=== PATIENT | female | born 1950 | race Caucasian/White ===

== ENCOUNTER 2017-07-05 07:39 | Outpatient (CLI) | payer MEDICARE, MEDICAID ==
[~2017-07-05] VITALS: Ht 160 cm; Wt 94.3 kg
[~2017-07-05 07:39] MED LIST: AMLO5TAB2 PO; ARTH650T11 PO; ATOR1TAB21 PO; CALC600T57 PO; ESTR62TA PO; GABA-279 PO; LOSARTAN/HCT PO; OMEP40CA2 PO; TRIA1CR TOP; VITA400C7 PO
[2017-07-05] MEDS ORDERED: NS 1,000 ML IV ONE (07:45)
[2017-07-05] MEDS ORDERED: LIDOCAINE 2% INJ 100 MG/5 ML SDV (FOR ANES.) As Ordered ONE (09:31)
[2017-07-05] MEDS ORDERED: PROPOFOL 200 MG/20 ML VIAL As Ordered ONE (09:31)
--- NOTE | 2017-07-05 09:47 | ROOR ---
Patient Name: Flor Damon Procedure Date: 07/05/2017 9:08 AM Date of : 1950 Age: 66 Room: [facility] Gender: Female Note Status: Finalized Procedure: Colonoscopy Indications: Screening for colorectal malignant neoplasm Providers: Jaycob Mendoza Jr, MD Referring MD: TOM VAZQUEZ Requesting Provider: Medicines: Propofol per Anesthesia Complications: No immediate complications. Procedure: Pre-Anesthesia Assessment: - Prior to the procedure, a History and Physical was performed, and patient medications and allergies were reviewed. The patient is competent. The risks and benefits of the procedure and the sedation options and risks were discussed with the patient. All questions were answered and informed consent was obtained. Patient identification and proposed procedure were verified by the physician and the nurse in the pre-procedure area and in the procedure room. Mental Status Examination: alert and oriented. Airway Examination: normal oropharyngeal airway and neck mobility. Respiratory Examination: clear to auscultation. CV Examination: normal. ASA Grade Assessment: II - A patient with mild systemic disease. After reviewing the risks and benefits, the patient was deemed in satisfactory condition to undergo the procedure. The anesthesia plan was to use moderate sedation / analgesia (conscious sedation). Immediately prior to administration of medications, the patient was re-assessed for adequacy to receive sedatives. The heart rate, respiratory rate, oxygen saturations, blood pressure, adequacy of pulmonary ventilation, and response to care were monitored throughout the procedure. The physical status of the patient was re-assessed after the procedure. The Colonoscope was introduced through the anus and advanced to the cecum, identified by appendiceal orifice and ileocecal valve. The colonoscopy was performed without difficulty. The patient tolerated the procedure well. The quality of the bowel preparation was adequate and good. Findings: The rectum, descending colon, transverse colon, ascending colon, cecum, appendiceal orifice, ileocecal valve and ileum appeared normal. Multiple small and large-mouthed diverticula were found in the sigmoid colon. A medium polyp was found in the distal sigmoid colon. The polyp was pedunculated. The polyp was removed with a hot snare. Resection and retrieval were complete. Impression: - The rectum, descending colon, transverse colon, ascending colon, cecum, appendiceal orifice, ileocecal valve and terminal ileum are normal. - Diverticulosis in the sigmoid colon. - One medium polyp in the distal sigmoid colon, removed with a hot snare. Resected and retrieved. Recommendation: - Discharge patient to home (ambulatory). - Repeat colonoscopy in 3 years for surveillance. Jaycob Mendoza MD Jaycob Mendoza Jr, MD 07/05/2017 9:47:13 AM This report has been signed electronically. Number of Addenda: 0 Note Initiated On: 07/05/2017 9:08 AM Estimated Blood Loss: Estimated blood loss: none.
[2017-07-05 10:05] VITALS: BP 144/68
== END 2017-07-05 10:19 | disposition home or self-care (01) ==
LOC: M OPP 07:39
PROVIDERS: ATTEND Surgery
DX: Z12.11 Encounter for screening for malignant neoplasm of colon (principal); D12.5 Benign neoplasm of sigmoid colon; K57.30 Diverticulosis of large intestine without perforation or abscess without bleeding; I10 Essential (primary) hypertension; E78.00 Pure hypercholesterolemia, unspecified; R51 Headache; M19.90 Unspecified osteoarthritis, unspecified site; K21.9 Gastro-esophageal reflux disease without esophagitis; Z88.6 Allergy status to analgesic agent; Z79.899 Other long term (current) drug therapy

== ENCOUNTER → 2019-03-03 | Outpatient (CLI) | payer MEDICARE, MEDICAID ==
[~2019-03-03] MED LIST changes: -AMLO5TAB2 PO; +AMLO5TAB6 PO; +GABA-1171 PO; -GABA-279 PO; +TRIA0.1C60 TOP; -TRIA1CR TOP
[2019-03-03 10:19] LABS: BASO # 0.1 10^3/uL (0.0-0.2); BASO % 0.7 % (0.0-1.0); EOS # 0.7 10^3/uL (0.0-0.50); HEMATOCRIT 39.9 % (36.0-47.0); LYMPH # 1.8 10^3/uL (1.5-4.5); LYMPH % 25.3 % (24.0-44.0); MEAN CORPUSCULAR HGB CONC 32.6 g/dl (32.0-36.5); MEAN CORPUSCULAR VOLUME 91.9 fl (80.0-96.0); MONO # 0.5 10^3/uL (0.0-0.8); MONO % 6.5 % (0.0-5.0); NEUTROPHILS # 4.2 10^3/uL (1.8-7.7); NEUTROPHILS % 58.1 % (36.0-66.0); PLATELET COUNT, AUTOMATED 358 10^3/uL (150-450); RED BLOOD COUNT 4.34 10^6/uL (4.00-5.40); WHITE BLOOD COUNT 7.2 10^3/uL (4.0-10.0)
[2019-03-03 10:48] LABS: ALBUMIN 3.8 GM/DL (3.2-5.2); BILIRUBIN,TOTAL 0.8 MG/DL (0.2-1.0); CALCIUM LEVEL 9.7 MG/DL (8.8-10.2); CHOLESTEROL RISK RATIO 3.815 (<5); CREATININE FOR GFR 1.43 MG/DL (0.55-1.30); POTASSIUM SERUM 4.4 MEQ/L (3.5-5.1); THYROID STIMULATING HORMONE 2.1 uIU/ML (0.358-3.740); TOTAL PROTEIN 8.1 GM/DL (6.4-8.2)
== END ==
LOC: M LAB 09:44
PROVIDERS: ATTEND Physician Assistant
DX: D50.9 Iron deficiency anemia, unspecified (principal); I10 Essential (primary) hypertension; E78.5 Hyperlipidemia, unspecified

== ENCOUNTER → 2020-04-19 | Outpatient (CLI) | payer MEDICARE, MEDICAID ==
[~2020-04-19] MED LIST changes: +AMLO1TAB24 PO; -AMLO5TAB6 PO; +BIOT5TAB3 PO; +HYDR25TAB PO; +LOSA100T50 PO; -OMEP40CA2 PO; +OMEP40CA97 PO; +RA N1TAB PO
[2020-04-19 09:10] LABS: AMORPHOUS SEDIMENT SMALL (NEGATIVE); APPEARANCE, URINE HAZY (CLEAR); BACTERIA, URINE AUTO NEGATIVE (NEGATIVE); BILIRUBIN, URINE AUTO NEGATIVE (NEGATIVE); BLOOD, URINE BLOOD NEGATIVE (NEGATIVE); COLOR, URINE YELLOW (YELLOW); GLUCOSE, URINE (UA) AUTO NEGATIVE (NEGATIVE); KETONE, URINE AUTO NEGATIVE (NEGATIVE); LEUKOCYTE ESTERASE, URINE AUTO 1+ (NEGATIVE); MUCUS, URINE SMALL (NEGATIVE); NITRITE, URINE AUTO NEGATIVE (NEGATIVE); PROTEIN, URINE AUTO NEGATIVE (NEGATIVE); RBC, URINE AUTO 8 /HPF (0-3); SPECIFIC GRAVITY URINE AUTO 1.021 (1.002-1.035); SQUAMOUS EPITHELIAL CELL UR AU 9 /HPF (0-6); UROBILINOGEN, URINE AUTO 0.2 mg/dL (0.0-2.0); WBC, URINE AUTO 8 /HPF (0-3)
[2020-04-19 09:13] LABS: BASO # 0.1 10^3/uL (0.0-0.2); BASO % 1.1 % (0.0-1.0); EOS # 0.5 10^3/uL (0.0-0.5); EOS % 7.3 % (0.0-3.0); HEMATOCRIT 38.6 % (36.0-47.0); HEMOGLOBIN 12.7 g/dl (12.0-15.5); LYMPH # 1.8 10^3/uL (1.5-5.0); LYMPH % 27.8 % (24.0-44.0); MEAN CORPUSCULAR HEMOGLOBIN 29.5 pg (27.0-33.0); MEAN CORPUSCULAR HGB CONC 32.9 g/dl (32.0-36.5); MEAN CORPUSCULAR VOLUME 89.8 fl (80.0-96.0); MONO # 0.4 10^3/uL (0.0-0.8); MONO % 6.4 % (0.0-5.0); NEUTROPHILS # 3.7 10^3/uL (1.5-8.5); NEUTROPHILS % 57.1 % (36.0-66.0); PLATELET COUNT, AUTOMATED 328 10^3/uL (150-450); WHITE BLOOD COUNT 6.4 10^3/uL (4.0-10.0)
[2020-04-19 09:29] LABS: HEMOGLOBIN A1c 6.1 %
[2020-04-19 09:44] LABS: BILIRUBIN,TOTAL 0.8 MG/DL (0.2-1.0); CALCIUM LEVEL 9.3 MG/DL (8.8-10.2); CREATININE FOR GFR 1.43 MG/DL (0.55-1.30); GLOMERULAR FILTRATION RATE 38.8 (>45); POTASSIUM SERUM 3.9 MEQ/L (3.5-5.1)
[2020-04-19 09:45] LABS: ALBUMIN 3.7 GM/DL (3.2-5.2); CHOLESTEROL RISK RATIO 4.482 (<5); THYROID STIMULATING HORMONE 1.93 uIU/ML (0.358-3.740); TOTAL PROTEIN 8.2 GM/DL (6.4-8.2)
== END ==
LOC: M LAB 08:24
PROVIDERS: ATTEND Physician Assistant
DX: Z00.00 Encounter for general adult medical examination without abnormal findings (principal); D50.9 Iron deficiency anemia, unspecified; I10 Essential (primary) hypertension; E78.5 Hyperlipidemia, unspecified; R73.01 Impaired fasting glucose

== ENCOUNTER → 2020-07-10 | Outpatient (CLI) | payer MEDICARE, MEDICAID | LOC: M LABSMTC 09:27 | PROVIDERS: ATTEND Anesthesiology | DX: Z01.812 Encounter for preprocedural laboratory examination (principal); Z20.828 Contact with and (suspected) exposure to other viral communicable diseases | CPT/HCPCS: C9803; U0003 ==

== ENCOUNTER 2020-07-15 09:36 | Day surgery (SDC) | payer MEDICARE, MEDICAID ==
[~2020-07-15] VITALS: Ht 162.6 cm; Wt 95.7 kg
[~2020-07-15 09:36] MED LIST changes: +NS 1,000 ML IV ONE
[2020-07-15] MEDS ORDERED: propofoL 200 MG/20 ML VIAL As Ordered ONE ×3 (10:48→11:15)
[2020-07-15] MEDS ORDERED: SIMETHICONE 40MG/0.6ML DROPS 30ML As Ordered ONE (11:15)
--- NOTE | 2020-07-15 11:20 | ROOR ---
Patient Name: Flor Damon Procedure Date: 07/15/2020 10:45 AM Date of : 1950 Age: 69 Room: [facility] Gender: Female Note Status: Finalized Procedure: Colonoscopy Indications: High risk colon cancer surveillance: Personal history of colonic polyps Providers: Jaycob Mendoza Jr, MD Referring MD: TOM VAZQUEZ Requesting Provider: Medicines: Propofol per Anesthesia Complications: No immediate complications. Procedure: Pre-Anesthesia Assessment: - Prior to the procedure, a History and Physical was performed, and patient medications and allergies were reviewed. The patient is competent. The risks and benefits of the procedure and the sedation options and risks were discussed with the patient. All questions were answered and informed consent was obtained. Patient identification and proposed procedure were verified by the physician and the nurse in the pre-procedure area and in the procedure room. Mental Status Examination: alert and oriented. Airway Examination: normal oropharyngeal airway and neck mobility. Respiratory Examination: clear to auscultation. CV Examination: normal. ASA Grade Assessment: II - A patient with mild systemic disease. After reviewing the risks and benefits, the patient was deemed in satisfactory condition to undergo the procedure. The anesthesia plan was to use moderate sedation / analgesia (conscious sedation). Immediately prior to administration of medications, the patient was re-assessed for adequacy to receive sedatives. The heart rate, respiratory rate, oxygen saturations, blood pressure, adequacy of pulmonary ventilation, and response to care were monitored throughout the procedure. The physical status of the patient was re-assessed after the procedure. The Colonoscope was introduced through the anus and advanced to the cecum, identified by the ileocecal valve. The colonoscopy was performed without difficulty. The patient tolerated the procedure well. The quality of the bowel preparation was adequate and fair. Findings: The rectum, recto-sigmoid colon, sigmoid colon, descending colon, transverse colon, ascending colon, cecum and ileocecal valve appeared normal. Impression: - Preparation of the colon was fair. - The rectum, recto-sigmoid colon, sigmoid colon, descending colon, transverse colon, ascending colon, cecum and ileocecal valve are normal. - No specimens collected. Recommendation: - Discharge patient to home (ambulatory). - Repeat colonoscopy in 5-10 years for surveillance. Jaycob Mendoza MD Jaycob Mendoza Jr, MD 07/15/2020 11:19:48 AM Electronically signed by Jaycob Mendoza Jr, MD Number of Addenda: 0 Note Initiated On: 07/15/2020 10:45 AM Estimated Blood Loss: Estimated blood loss: none.
[2020-07-15 11:40] VITALS: BP 173/92
== END 2020-07-15 11:47 | disposition home or self-care (01) ==
LOC: M OPP 09:36
PROVIDERS: ATTEND Surgery
DX: Z12.11 Encounter for screening for malignant neoplasm of colon (principal); Z86.010 Personal history of colon polyps; I10 Essential (primary) hypertension; E78.5 Hyperlipidemia, unspecified; R12 Heartburn; M19.90 Unspecified osteoarthritis, unspecified site; Z88.6 Allergy status to analgesic agent; Z79.899 Other long term (current) drug therapy

== ENCOUNTER → 2020-07-30 | Outpatient (CLI) | payer SELFPAY ==
[~2020-07-30] MED LIST changes: -NS 1,000 ML IV ONE
== END ==
LOC: M LABSMTC 12:46
PROVIDERS: ATTEND Pediatrics
DX: Z20.828 Contact with and (suspected) exposure to other viral communicable diseases (principal)

== ENCOUNTER → 2020-08-06 | Outpatient (CLI) | payer SELFPAY | LOC: M LABSMTC 12:18 | PROVIDERS: ATTEND Pediatrics | DX: Z20.828 Contact with and (suspected) exposure to other viral communicable diseases (principal) ==

== ENCOUNTER → 2020-08-30 | Outpatient (CLI) | payer SELFPAY | LOC: M LABSMTC 13:12 | PROVIDERS: ATTEND Pediatrics | DX: Z20.828 Contact with and (suspected) exposure to other viral communicable diseases (principal) ==

== ENCOUNTER → 2020-09-08 | Outpatient (CLI) | payer SELFPAY | LOC: M LABSMTC 12:46 | PROVIDERS: ATTEND Pediatrics | DX: Z11.59 Encounter for screening for other viral diseases (principal) ==

== ENCOUNTER → 2021-02-03 | Outpatient (CLI) | payer MEDICARE, MEDICAID ==
[~2021-02-03] MED LIST changes: +HYDR-3490 PO; -HYDR25TAB PO
--- NOTE | 2021-02-04 09:57 | REPMRS ---
Patient History The patient states she had a clinical breast exam in December 2020. Patient is postmenopausal. Family history of breast cancer in maternal grandmother, breast cancer under age 50 in sister. Stereotactic core biopsy of the right breast, June 08, 2017. Excisional biopsy of the right breast, 1996. Patient states no breast complaints. Johanne has signed the MRS history sheet Digital Woman Screen Mammo: February 03, 2021 - Exam #: [id number] Bilateral CC and MLO view(s) were taken. Technologist: Lita Bliss, Technologist Prior study comparison: October 17, 2019, bilateral digital mammo screening bilat, performed at [facility]. January 09, 2018, right breast digital mammo diagnostic unilateral, performed at [place]. FINDINGS: There are scattered fibroglandular densities. Screening. Digital screening (2D) mammography was performed bilaterally in the CC and MLO projections. Additionally, breast tomosynthesis (3D mammography) was performed bilaterally in the CC and MLO projections. Todays exam was compared to the prior exams(s). By history, the patient has no complaints of a palpable breast abnormality or other significant breast complaints. The breasts are unchanged in size and shape. There are no jaspal-soft tissue densities or spiculated masses. There is no internal architectural distortion. Once again, stable benign appearing calcifications are seen.There are no suspicious jaspal-calcific clusters. Skin thickening or nipple retraction is not present. IMPRESSION: BI-RADS Category 2- Benign Findings(s). There is no evidence of malignant alteration of the breasts. Followup examination recommended in one year. The Volpara volumetric breast density category is B, there are scattered areas of fibroglandular density. This mammogram was read with the assistance of [employer],an FDA approved computer aided detection system for mammography. Negative x-ray reports should not delay surgical consultation if a dominant or clinically suspicious mass is present. The lifetime Tyrer-Cuzick score is 10.3 % Not all breast cancers can be identified by mammography. Therefore, we recommend that you continue to perform regular breast self-examination and physical examination and then promptly contact your physician of any concerns or changes. Adenosis and dense breasts may obscure an underlying neoplasm. Assessment: BI-RADS/ACR category 2 mammogram. Benign Findings. Recommendation Routine screening mammogram of both breasts in 1 year. Electronically Signed By: Allan Kapadia DO 02/04/21 [id number]
== END ==
LOC: M WHC 14:45
PROVIDERS: ATTEND Nurse Practitioner
DX: Z12.31 Encounter for screening mammogram for malignant neoplasm of breast (principal); Z78.0 Asymptomatic menopausal state; Z80.3 Family history of malignant neoplasm of breast; Z86.018 Personal history of other benign neoplasm; R92.1 Mammographic calcification found on diagnostic imaging of breast

== ENCOUNTER → 2021-11-09 | Outpatient (CLI) | payer MEDICARE, MEDICAID ==
[~2021-11-09] MED LIST changes: +LOSA100T45 PO; -LOSA100T50 PO; +OMEP40CA4 PO; -OMEP40CA97 PO
[2021-11-09 11:19] LABS: ALBUMIN 3.8 GM/DL (3.2-5.2); BILIRUBIN,TOTAL 0.7 MG/DL (0.2-1.0); CALCIUM LEVEL 9.4 MG/DL (8.8-10.2); CHOLESTEROL RISK RATIO 4.766 (<5); CREATININE FOR GFR 1.59 MG/DL (0.55-1.30); GLOMERULAR FILTRATION RATE 34.2 (>39); POTASSIUM SERUM 3.9 MEQ/L (3.5-5.1)
[2021-11-09 11:23] LABS: HEMOGLOBIN A1c 6.2 %
== END ==
LOC: M WUC 08:06
PROVIDERS: ATTEND Physician Assistant
DX: I10 Essential (primary) hypertension (principal); R73.03 Prediabetes; E78.5 Hyperlipidemia, unspecified

== ENCOUNTER → 2022-02-20 | Outpatient (REF) | payer MEDICARE, MEDICAID ==
[2022-02-20 13:18] LABS: HEMOGLOBIN A1c 6.2 %
== END ==
LOC: M LAB REF 11:48
PROVIDERS: ATTEND Physician Assistant
DX: R73.03 Prediabetes (principal)

== ENCOUNTER → 2022-06-07 | Outpatient (CLI) | payer MEDICARE, MEDICAID ==
[2022-06-07 10:18] LABS: BASO # 0.1 10^3/uL (0.0-0.2); BASO % 1.2 % (0.0-1.0); EOS # 0.5 10^3/uL (0.0-0.5); EOS % 7.3 % (0.0-3.0); HEMATOCRIT 39.1 % (36.0-47.0); HEMOGLOBIN 12.6 g/dl (12.0-15.5); LYMPH # 1.9 10^3/uL (1.5-5.0); LYMPH % 26.5 % (24.0-44.0); MEAN CORPUSCULAR HEMOGLOBIN 29.9 pg (27.0-33.0); MEAN CORPUSCULAR HGB CONC 32.2 g/dl (32.0-36.5); MEAN CORPUSCULAR VOLUME 92.9 fl (80.0-96.0); MONO # 0.5 10^3/uL (0.0-0.8); MONO % 6.7 % (2.0-8.0); NEUTROPHILS # 4.2 10^3/uL (1.5-8.5); NEUTROPHILS % 57.9 % (36.0-66.0); PLATELET COUNT, AUTOMATED 424 10^3/uL (150-450); RED BLOOD COUNT 4.21 10^6/uL (4.00-5.40); WHITE BLOOD COUNT 7.3 10^3/uL (4.0-10.0)
[2022-06-07 10:40] LABS: HEMOGLOBIN A1c 6.3 %
[2022-06-07 11:06] LABS: ALBUMIN 3.8 GM/DL (3.2-5.2); BILIRUBIN,TOTAL 0.7 MG/DL (0.2-1.0); CALCIUM LEVEL 9.3 MG/DL (8.8-10.2); CHOLESTEROL RISK RATIO 4.125 (<5); CREATININE FOR GFR 1.37 MG/DL (0.55-1.30); GLOMERULAR FILTRATION RATE 40.6 (>39); THYROID STIMULATING HORMONE 2.21 uIU/ML (0.358-3.740); TOTAL PROTEIN 7.9 GM/DL (6.4-8.2)
== END ==
LOC: M WUC 08:30
PROVIDERS: ATTEND Physician Assistant
DX: E78.5 Hyperlipidemia, unspecified (principal); I10 Essential (primary) hypertension; R73.03 Prediabetes

== ENCOUNTER → 2022-10-17 | Outpatient (CLI) | payer MEDICARE, MEDICAID ==
[2022-10-17 09:52] LABS: BASO # 0.1 10^3/uL (0.0-0.2); BASO % 0.8 % (0.0-1.0); EOS # 0.7 10^3/uL (0.0-0.5); EOS % 8.9 % (0.0-3.0); HEMATOCRIT 38.1 % (36.0-47.0); HEMOGLOBIN 12.1 g/dl (12.0-15.5); LYMPH # 1.8 10^3/uL (1.5-5.0); LYMPH % 24.3 % (24.0-44.0); MEAN CORPUSCULAR HEMOGLOBIN 29.4 pg (27.0-33.0); MEAN CORPUSCULAR HGB CONC 31.8 g/dl (32.0-36.5); MEAN CORPUSCULAR VOLUME 92.7 fl (80.0-96.0); MONO # 0.7 10^3/uL (0.0-0.8); MONO % 9.4 % (2.0-8.0); NEUTROPHILS # 4.2 10^3/uL (1.5-8.5); NEUTROPHILS % 56.1 % (36.0-66.0); PLATELET COUNT, AUTOMATED 379 10^3/uL (150-450); RED BLOOD COUNT 4.11 10^6/uL (4.00-5.40); WHITE BLOOD COUNT 7.4 10^3/uL (4.0-10.0)
[2022-10-17 10:20] LABS: ALBUMIN 3.9 G/DL (3.2-5.2); BILIRUBIN,TOTAL 0.8 MG/DL (0.3-1.2); CALCIUM LEVEL 9.1 MG/DL (8.3-10.6); CHOLESTEROL RISK RATIO 3.69 (<5); CREATININE FOR GFR 1.42 MG/DL (0.55-1.30); GLOMERULAR FILTRATION RATE 38.8 (>39); HDL CHOLESTEROL 31.1 MG/DL (>40); LDL CHOLESTEROL 46.1 MG/DL (<100); TOTAL PROTEIN 7.8 G/DL (5.7-8.2)
[2022-10-17 10:23] LABS: THYROID STIMULATING HORMONE 2.748 uIU/ML (0.55-4.78)
== END ==
LOC: M WUC 08:32
PROVIDERS: ATTEND Physician Assistant
DX: R73.03 Prediabetes (principal); I10 Essential (primary) hypertension; E78.5 Hyperlipidemia, unspecified

== ENCOUNTER 2023-02-27 17:59 | Emergency (ER) | payer MEDICARE, MEDICAID ==
[~2023-02-27] VITALS: Ht 162.6 cm; Wt 98.7 kg
[~2023-02-27 17:59] MED LIST changes: -LOSA100T45 PO; +LOSA100T46 PO
[2023-02-27 18:00] VITALS: BP 182/96
[2023-02-27] MEDS ORDERED: NORCO, ANEXSIA 5/325MG TABLET (HYDROcodone/ACETAMINOPHEN) PO ONE (23:00)
== END 2023-02-27 23:11 | disposition home or self-care (01) ==
LOC: M ED 17:59
DX: S83.91XA Sprain of unspecified site of right knee, initial encounter (principal); X50.0XXA Overexertion from strenuous movement or load, initial encounter; Y92.009 Unspecified place in unspecified non-institutional (private) residence as the place of occurrence of the external cause; Y93.01 Activity, walking, marching and hiking; Y99.8 Other external cause status; Z88.6 Allergy status to analgesic agent; Z79.899 Other long term (current) drug therapy

== ENCOUNTER → 2023-03-14 | Outpatient (CLI) | payer MEDICARE, MEDICAID ==
[2023-03-14 12:52] LABS: HEMOGLOBIN A1c 6.2 % (4.0-6.0)
== END ==
LOC: M WUC 08:40
PROVIDERS: ATTEND Physician Assistant
DX: R73.03 Prediabetes (principal)

== ENCOUNTER → 2023-10-05 | Outpatient (CLI) | payer MEDICARE, MEDICAID ==
[2023-10-05 10:45] LABS: HEMATOCRIT 39.5 % (36.0-47.0); HEMOGLOBIN 12.8 g/dl (12.0-15.5); MEAN CORPUSCULAR HEMOGLOBIN 29.6 pg (27.0-33.0); MEAN CORPUSCULAR HGB CONC 32.4 g/dl (32.0-36.5); MEAN CORPUSCULAR VOLUME 91.2 fl (80.0-96.0); PLATELET COUNT, AUTOMATED 423 10^3/uL (150-450); RED BLOOD COUNT 4.33 10^6/uL (4.00-5.40); WHITE BLOOD COUNT 8.1 10^3/uL (4.0-10.0)
[2023-10-05 11:07] LABS: HEMOGLOBIN A1c 6.1 % (4.0-6.0)
[2023-10-05 11:15] LABS: ALBUMIN 3.9 G/DL (3.2-5.2); CALCIUM LEVEL 9.2 MG/DL (8.3-10.6); CHOLESTEROL RISK RATIO 4.66 (<5); CREATININE FOR GFR 1.24 MG/DL (0.55-1.30); GLOMERULAR FILTRATION RATE 45.3 (>39); HDL CHOLESTEROL 28.1 MG/DL (>40); LDL CHOLESTEROL 39.9 MG/DL (<100); NON-HDL-C 102.9 MG/DL; TOTAL PROTEIN 7.8 G/DL (5.7-8.2)
[2023-10-05 11:17] LABS: THYROID STIMULATING HORMONE 2.795 uIU/ML (0.55-4.78)
== END ==
LOC: M WUC 08:25
PROVIDERS: ATTEND Physician Assistant
DX: R73.03 Prediabetes (principal); I10 Essential (primary) hypertension; E78.5 Hyperlipidemia, unspecified; M25.562 Pain in left knee; M25.561 Pain in right knee; M11.261 Other chondrocalcinosis, right knee; M17.12 Unilateral primary osteoarthritis, left knee

== ENCOUNTER → 2024-03-18 | Outpatient (CLI) | payer MEDICARE, MEDICAID | LOC: M WHC 14:18 | PROVIDERS: ATTEND Physician Assistant | DX: Z12.31 Encounter for screening mammogram for malignant neoplasm of breast (principal); R92.313 Mammographic fatty tissue density, bilateral breasts ==

== ENCOUNTER → 2024-03-20 | Outpatient (REF) | payer MEDICARE, MEDICAID ==
[2024-03-20 19:27] LABS: HEMOGLOBIN A1c 5.9 % (4.0-6.0)
== END ==
LOC: M LABWUC 16:26
PROVIDERS: ATTEND Physician Assistant
DX: R73.03 Prediabetes (principal)

== ENCOUNTER → 2024-10-29 | Outpatient (CLI) | payer MEDICARE, MEDICAID ==
[2024-10-29 10:38] LABS: HEMATOCRIT 40.2 % (36.0-47.0); MEAN CORPUSCULAR HEMOGLOBIN 29.5 pg (27.0-33.0); MEAN CORPUSCULAR HGB CONC 32.3 g/dl (32.0-36.5); MEAN CORPUSCULAR VOLUME 91.4 fl (80.0-96.0); PLATELET COUNT, AUTOMATED 424 10^3/uL (150-450)
[2024-10-29 11:04] LABS: ALBUMIN 3.8 G/DL (3.2-5.2); BILIRUBIN,TOTAL 0.9 MG/DL (0.3-1.2); CALCIUM LEVEL 9.5 MG/DL (8.3-10.6); CHOLESTEROL RISK RATIO 4.89 (<5); CREATININE FOR GFR 1.38 MG/DL (0.55-1.30); GLOMERULAR FILTRATION RATE 39.9 (>39); HDL CHOLESTEROL 29.2 MG/DL (>40); NON-HDL-C 113.8 MG/DL; POTASSIUM SERUM 4.4 MMOL/L (3.5-5.1)
[2024-10-29 11:05] LABS: THYROID STIMULATING HORMONE 2.936 uIU/ML (0.55-4.78)
[2024-10-29 11:08] LABS: HEMOGLOBIN A1c 6.2 % (4.0-6.0)
[2024-10-30 06:59] LABS: WHITE BLOOD COUNT 7.9 10^3/uL (4.0-10.0)
== END ==
LOC: M WUC 08:24
PROVIDERS: ATTEND Physician Assistant
DX: R73.03 Prediabetes (principal); I10 Essential (primary) hypertension; E78.5 Hyperlipidemia, unspecified

== ENCOUNTER → 2025-04-09 | Outpatient (CLI) | payer MEDICARE, MEDICAID | LOC: M WHC 15:28 | PROVIDERS: ATTEND Physician Assistant | DX: Z12.31 Encounter for screening mammogram for malignant neoplasm of breast (principal) ==

== ENCOUNTER → 2025-09-23 | Outpatient (CLI) | payer MEDICARE, MEDICAID ==
[2025-09-23 12:00] LABS: PLATELET COUNT, AUTOMATED 435 10^3/uL (150-450)
[2025-09-23 12:04] LABS: ALT/SGPT 20.0 U/L (7.0-40); AST/SGOT 15.0 U/L (<34); CALCIUM LEVEL 9.0 MG/DL (8.3-10.6); CARBON DIOXIDE LEVEL 26.0 MMOL/L (20-31); CHLORIDE LEVEL 106.0 MMOL/L (98-107); CHOLESTEROL LEVEL 134.0 MG/DL (<200); CHOLESTEROL RISK RATIO 4.75 (<5); CREATININE FOR GFR 1.4 MG/DL (0.55-1.30); GLOMERULAR FILTRATION RATE 39.5 (>39); LDL CHOLESTEROL 39.2 MG/DL (<100); NON-HDL-C 105.8 MG/DL; POTASSIUM SERUM 4.2 MMOL/L (3.5-5.1); SODIUM LEVEL 143.0 MMOL/L (136-145); TRIGLYCERIDES LEVEL 333.0 MG/DL (<150)
[2025-09-23 12:15] LABS: ESTIMATED AVERAGE GLUCOSE 137.0 MG/DL (60-110)
== END ==
LOC: M WUC 08:28
PROVIDERS: ATTEND Physician Assistant
DX: E78.5 Hyperlipidemia, unspecified (principal); I10 Essential (primary) hypertension; R73.03 Prediabetes; R35.1 Nocturia